=== PATIENT | female | born 1965 | race Caucasian/White ===

== ENCOUNTER 2016-07-14 19:03 | Emergency (ER) | payer MEDICAID ==
[~2016-07-14 19:03] MED LIST: ARIPIPRAZOLE20 MG PO; BENZTROPINE MESY1 MG PO; CLARITIN10 MG PO; CYCLOBENZAPRINE5 M1 PO; DOXY-LEMMON100 MG PO; DULERA 200 MCG/13 G1 INH; ENABLEX15 MG PO; GEODON80 MG PO; HALOPERIDOL5 M1; INDERAL20 MG PO; KEFLEX500 M4 PO; KLONOPIN1 M1 PO; LAMICTAL (GREE1 EACH PO; LIPITOR80 M1 PO; NALTREXONE HCL50 MG PO; NORCO 5-325 TA1 EACH PO; OLANZAPINE20 M1 PO; OMEPRAZOLE20 MG PO; PANTOPRAZOLE SO20 M1 PO; PEPCID20 M1; PROPRANOLOL HCL20 M2 PO; SENEXON-S TABL1 EAC1 PO; SERTRALINE HCL100 M5 PO; SINGULAIR10 MG PO; TIZANIDINE HCL4 M3 PO
[2016-07-14] MEDS ORDERED: CLARITIN10 M6 PO (19:54)
[2016-07-14] MEDS ORDERED: FLONASE ALLERG9.9 ML (19:55)
[2016-07-14] MEDS ORDERED: SINGULAIR10 M1 PO (19:55)
[2016-07-14] MEDS ORDERED: OMEPRAZOLE20 M3 PO (19:56)
[2016-07-14] MEDS ORDERED: BENZTROPINE MESY1 M1 PO (19:57)
[2016-07-14] MEDS ORDERED: RISPERDAL2 M2 PO (19:57)
[2016-07-14] MEDS ORDERED: ZOLOFT100 M1 PO (19:58)
[2016-07-14] MEDS ORDERED: CYCLOBENZAPRINE10 M1 PO (19:59)
[2016-07-14] MEDS ORDERED: IBUPROFEN600 M1 PO (19:59)
[2016-07-14 20:07] LABS: PROTHROMBIN TIME 12.1 SECONDS (9.0-13.6)
[2016-07-14 20:18] LABS: URINE APPEARANCE CLEAR; URINE BILIRUBIN NEGATIVE (NEG); URINE BLOOD NEGATIVE (NEG); URINE COLOR PALE YELLOW; URINE GLUCOSE (UA) NEGATIVE (NEG); URINE KETONE NEGATIVE (NEG); URINE LEUKOCYTE ESTERASE NEGATIVE (NEG); URINE NITRITE NEGATIVE (NEG); URINE PROTEIN NEGATIVE (NEG); URINE SPECIFIC GRAVITY 1.005 (1.003-1.030)
[2016-07-14 20:18] LABS: ALB/GLOB RATIO 0.9 (0.8-2.0); ALBUMIN 3.4 g/dl (3.5-5.0); ALKALINE PHOSPHATASE 91 U/L (33-138); ALT/SGPT 65 U/L (12-78); ANION GAP 16 mmol/L (0-20); AST/SGOT 60 U/L (10-40); BILIRUBIN,TOTAL 0.4 mg/dl (0-1.5); BLOOD UREA NITROGEN 10 mg/dl (6-24); CALCIUM 8.9 mg/dl (8.5-10.5); CARBON DIOXIDE-VENOUS 26 mmol/L (22-32); CHLORIDE 103 mmol/l (96-110); CREATININE 0.68 mg/dl (0.50-1.10); GLUCOSE 93 mg/dL (70-110); LIPASE 94 U/L (73-393); POTASSIUM 3.5 mmol/L (3.7-5.1); SODIUM 141 mmol/L (135-145); eGFR VALUE FOR BLACK >90 mL/Min
[2016-07-14 20:54] LABS: BASO % 0.3 % (0-2); EOS % 0.7 % (0-7); EOSINOPHIL ABSOLUTE COUNT 0.1 tho/cmm (0.0-0.7); IMMATURE GRANULOCYTES ABSOLUTE 0.01 tho/cmm (0-0.03); IMMATURE GRANULOCYTES PERCENT 0.1 % (0-0.3); LYMPH % 25.9 % (20-45); LYMPH ABSOLUTE COUNT 2.3 tho/cmm (0.8-4.5); MCH (MEAN CORPUSCULAR HGB) 30.5 pg (28.0-32.0); MCHC MEAN CORPUSCULAR HGB CONC 34.2 % (32.0-36.0); MCV (MEAN CELL VOLUME) 89.2 fl (82.0-96.0); MEAN PLATELET VOLUME 10.2 cmc (9.4-12.4); MONO % 8.5 % (0-12); MONOCYTE ABSOLUTE COUNT 0.8 tho/cmm (0.0-1.2); NEUTROPHIL ABSOLUTE COUNT 5.7 tho/cmm (1.6-8.0); NEUTROPHIL-AUTOMATED 5.7 tho/cmm (1.6-8.0); NEUTROPHILS % 64.5 % (40-80); PLATELET COUNT 195 tho/cmm (150-450); RED BLOOD COUNT 4.26 mil/cmm (4.00-5.20); RED CELL DISTRIBUTION WIDTH 13.6 % (12.4-16.4); WHITE BLOOD COUNT 8.8 tho/cmm (4.0-10.0)
[2016-07-14] MEDS ORDERED: PRILOSEC OTC20 M1 PO (21:15)
[2016-09-21] MEDS ORDERED: PROVENTIL HFA6.7 G1 INH (13:19)
[2016-09-21] MEDS ORDERED: INVEGA SUS234 MG/1.1 IM (13:23)
[2016-09-21] MEDS ORDERED: CYCLOBENZAPRINE10 M1 PO (13:28)
== END 2016-07-14 21:30 ==
LOC: EDMED 19:03
PROVIDERS: Emergency Medicine
DX: K29.70 Gastritis, unspecified, without bleeding (principal); F10.20 Alcohol dependence, uncomplicated; Z87.11 Personal history of peptic ulcer disease; Z76.0 Encounter for issue of repeat prescription; K21.9 Gastro-esophageal reflux disease without esophagitis; F17.200 Nicotine dependence, unspecified, uncomplicated
CPT/HCPCS: C9113; J7030